=== PATIENT | female | born 1990 | race Caucasian/White ===

== ENCOUNTER → 2021-11-20 10:08 | Outpatient (CLI) | payer OTHER, SELFPAY ==
[2021-11-20 10:42] LABS: Add Manual Diff / Slide Review NO; Basophils Absolute Auto 0 /uL (0-100); Basophils Percent Auto 0.3 % (0-2); Eosinophils Absolute Auto 100 /uL (0-450); Eosinophils Percent Auto 0.6 % (2-4); Hematocrit 39.6 % (36-46); Hemoglobin 13.9 g/dL (12.0-16.0); Lymphocytes Absolute Auto 900 /uL (1100-4500); Lymphocytes Percent Auto 8.4 % (25-40); Mean Corpuscular Hemoglobin 32.1 PG (26-34); Mean Corpuscular Volume 91.7 fL (80-100); Monocytes Absolute Auto 200 /uL (0-900); Monocytes Percent Auto 2.1 % (3-14); Neutrophils Absolute Auto 9300 /uL (1500-7000); Neutrophils Percent Auto 88.6 % (50-75); Platelet Count 309 X10^3/uL (150-400); Red Blood Cell Count 4.32 X10^6/uL (4.0-5.2); Red Cell Distribution Width 13.4 % (11.6-14.8); White Blood Cell Count 10.5 X10^3/uL (4.5-11.0)
[2021-11-20 10:47] LABS: Appearance Urine UA CLEAR; Bilirubin Urine UA NEGATIVE (NEGATIVE); Color Urine UA YELLOW; Glucose Urine UA NEGATIVE (Negative); Ketones Urine UA 1+ (NEGATIVE); Leukocyte Esterase Urine UA TRACE (NEGATIVE); Nitrite Urine UA NEGATIVE (Negative); Occult Blood Urine UA 1+ (Negative); Protein Urine UA TRACE (Negative); Urobilinogen Urine UA 0.2 E.U./dL (0.2)
[2021-11-20 10:57] LABS: pH Urine UA 6.5 (4.5-8.0)
[2021-11-20 11:41] LABS: Bacteria Urine Moderate (10-30); Mucus Urine 2+ (Negative); RBC Urine 1-5/HPF (0-5/HPF); Squamous Epithelial Cell Urine 10-30 /HPF (0-5/HPF); WBC Urine 1-5/HPF (0-5/HPF)
[2021-11-21 06:56] LABS: RPR Screen Non Reactive (Non Reactive)
[2021-11-21 12:18] LABS: Varicella IgG Antibody <135 index (Immune >165)
[2021-11-21 20:01] LABS: Rubella Antibody IgG 13.8 IU/mL (>15)
[2021-11-21 20:03] LABS: HIV 1 & 2 Ab/Ag 4th Gen Combo NEGATIVE (NEGATIVE); Hep C Virus Ab w/Reflex Quant NEGATIVE s/c (NEGATIVE); Hepatitis B Surface Antigen NEGATIVE s/c (NEGATIVE)
[2021-11-22 19:17] LABS: AFP, Serum 35.4 ng/mL (.); Estriol, Free 1.64 ng/mL (.); Inhibin A, Dimeric 180.06 pg/mL (.); Maternal Ethnicity Caucasian (.); Maternal Weight 127 lbs (.); Number of Fetuses No (.); OSBR Risk 1 IN 10000 (.); Test Results *Screen Negative* (.); hCG, Serum 30753 mIU/mL (.)
[2021-11-25 12:04] LABS: Results Report (.)
== END ==
PROVIDERS: Family Provider Internal Medicine; PCP Registered Nurse Diabetes Educator; Referring Provider Obstetrics & Gynecology; Visit Provider Obstetrics & Gynecology
DX: Z34.82 Encounter for supervision of other normal pregnancy, second trimester (principal); Z3A.16 16 weeks gestation of pregnancy
CPT/HCPCS: 36415; 80055; 81003; 81015; 82105; 82677; 84702; 86336; 86787; 86803; 86850; 86900; 86901; 87086; 87389

== ENCOUNTER → 2021-12-12 12:16 | Outpatient (CLI) | payer OTHER, SELFPAY ==
--- NOTE | 2021-12-12 12:17 | DI.US.S_ITS ---
PROCEDURE: US OB >= 14 WEEKS FETUS INDICATIONS: anatomy scan OUTSIDE/PRIOR DATING DATA: Last menstrual period (LMP): 07/25/2021 LMP-based estimated date of delivery (LISSETH): 05/01/2022. First dating scan (date and location): 10/23/2021. Estimated date of delivery (LISSETH) from first dating scan: 05/01/2022. The calculations are made using the ultrasound LISSETH of 05/01/2022. TECHNIQUE: Real-time scanning was performed of the fetus, with image documentation and biometric measurements. COMPARISON: [facility], , OB >= 14 WEEKS FETUS, 11/20/2021, 9:58. FINDINGS: General: A single living intrauterine gestation is present. Presentation: Vertex. Placenta: Placental position is posterior , without previa. Amniotic fluid index: 10.5 cm, normal range is 5-24 cm. Largest pocket 4.6 cm. heart rate: 152 beats per minute. Maternal cervical canal: 3.7 cm long. Normal lower limit is 2.5 cm. biometrics: Biparietal diameter: 20 weeks Head circumference: 20 weeks Abdominal circumference: 20 weeks Femur length: 20 weeks 1 day Clinically estimated gestational age: 20 weeks 0 days Composite gestational age from present scan: 20 weeks 0 days Estimated weight and percentile: 328 g; 47th percentile Anatomic survey: Neuro: Ventricles are non-dilated at less than 10 mm. Cisterna magna is normal at 3-11 mm. Cerebellum is normal in size and morphology. Nuchal skin fold: Normal at less than 6 mm between 14-21 weeks gestational age. Face: Nose and lips, facial profile are normal. Spine: No evidence for spina bifida. Heart: 4-chambered heart is present, with normal ventricular outflow tracts. Diaphragm: Diaphragm is intact. Stomach: Left-sided stomach is present. Kidneys: No hydronephrosis. Normal is less than 5 mm in 2nd trimester, less than 7 mm in 3rd trimester. Cord: 3-vessel cord has orthotopic insertion. Marginal placental cord insertion site 1.6 cm from the placental edge. Bladder: Normal in size. Extremities: All 4 extremities identified. IMPRESSION: 1. Normal interval growth. 2. Normal anatomic survey. 3. Marginal placental cord insertion site 1.6 cm from the placental margin. We strive to produce accurate, complete, and clear reports of imaging services. To assist us in improving patient care, this report was composed using standard report templates and voice recognition software. Therefore, it may contain abnormal punctuation, insertions and/or omissions. Occasional wrong-word or sound-alike substitutions may occur. Though we review the report and make efforts to correct it, we do recommend that the report be read carefully in proper context to recognize any text inaccuracies. Dictated by: Breezy DURÁN Interpreted: Erik Blanchard MD on 12/12/2021 at 14:00 Transcribed by: DEJAH on 12/12/2021 at 14:12 Approved by: Erik Blanchard M.D. on 12/12/2021 at 17:49
== END ==
PROVIDERS: Family Provider Internal Medicine; PCP Registered Nurse Diabetes Educator; Referring Provider Obstetrics & Gynecology; Visit Provider Obstetrics & Gynecology
DX: Z34.82 Encounter for supervision of other normal pregnancy, second trimester (principal); Z3A.20 20 weeks gestation of pregnancy
CPT/HCPCS: 76811

== ENCOUNTER → 2022-01-07 11:08 | Outpatient (CLI) | payer OTHER, SELFPAY ==
[2022-01-07 15:06] LABS: Urine N gonorrhoeae NOT DETECTED
[2022-01-07 15:08] LABS: Urine Chlamydia NOT DETECTED
== END ==
PROVIDERS: Family Provider Internal Medicine; PCP Registered Nurse Diabetes Educator; Visit Provider Obstetrics & Gynecology
DX: Z34.82 Encounter for supervision of other normal pregnancy, second trimester (principal); Z3A.23 23 weeks gestation of pregnancy
CPT/HCPCS: 87491; 87591

== ENCOUNTER → 2022-01-29 10:59 | Outpatient (CLI) | payer OTHER, SELFPAY ==
[2022-01-29 14:00] LABS: Hematocrit 37.2 % (36-46); Hemoglobin 13.1 g/dL (12.0-16.0)
[2022-01-29 14:34] LABS: GTT (PREG) 1 Hour PP 50gm Dose 89 mg/dL (76-139)
== END ==
PROVIDERS: Family Provider Internal Medicine; PCP Registered Nurse Diabetes Educator; Referring Provider Obstetrics & Gynecology; Visit Provider Obstetrics & Gynecology
DX: Z34.82 Encounter for supervision of other normal pregnancy, second trimester (principal); Z3A.26 26 weeks gestation of pregnancy
CPT/HCPCS: 36415; 82950; 85014; 85018

== ENCOUNTER → 2022-04-08 11:28 | Outpatient (CLI) | payer OTHER, SELFPAY ==
[2022-04-09 15:02] LABS: Strep Grp B PCR NEG for Grp B Strep
== END ==
PROVIDERS: Family Provider Internal Medicine; PCP Registered Nurse Diabetes Educator; Visit Provider Obstetrics & Gynecology
DX: Z34.83 Encounter for supervision of other normal pregnancy, third trimester (principal); Z3A.36 36 weeks gestation of pregnancy
CPT/HCPCS: 87653

== ENCOUNTER 2022-05-01 20:11 | Inpatient (IN) | payer OTHER, SELFPAY ==
[2022-05-01 21:11] LABS: Add Manual Diff / Slide Review NO; Basophils Absolute Auto 0 /uL (0-100); Basophils Percent Auto 0.4 % (0-2); Eosinophils Absolute Auto 100 /uL (0-450); Eosinophils Percent Auto 1.5 % (2-4); Hematocrit 36.3 % (36-46); Hemoglobin 12.3 g/dL (12.0-16.0); Lymphocytes Absolute Auto 1900 /uL (1100-4500); Lymphocytes Percent Auto 22.5 % (25-40); Mean Corpuscular Hemoglobin 32.8 PG (26-34); Mean Corpuscular Volume 96.6 fL (80-100); Monocytes Absolute Auto 700 /uL (0-900); Monocytes Percent Auto 7.9 % (3-14); Neutrophils Absolute Auto 5700 /uL (1500-7000); Neutrophils Percent Auto 67.7 % (50-75); Platelet Count 242 X10^3/uL (150-400); Red Blood Cell Count 3.76 X10^6/uL (4.0-5.2); Red Cell Distribution Width 13.8 % (11.6-14.8); White Blood Cell Count 8.4 X10^3/uL (4.5-11.0)
[2022-05-01] MEDS: OXYTOCIN PREMIX 30 UNIT/500 ML PLAST..BAG IV (21:18)
[2022-05-01] MEDS: LACTATED RINGERS 1,000 ML 100 ML IV (21:18)
[2022-05-01 21:24] LABS: COVID19 -Nasal RAPID Negative (Negative)
[2022-05-02] MEDS: LACTATED RINGERS 1,000 ML 100 ML IV ×2 (07:03→08:37)
[2022-05-02] MEDS: FENT 2MCG/ML BUPIV 0.125% EPI 200 MCG/100 ML PLAST..BAG 6 MCG EPIDURAL (08:37)
--- NOTE | 2022-05-02 09:58 | P.HPOB_ITS ---
OB HPI Date/Time Date of admission: 05/01/22 Date Patient Seen: 05/02/22 Time Patient Seen: 09:00 History of Present Condition Chief complaint: Induction LISSETH Calculator Estimated Delivery Date Method Current WG Current Estimate 05/01/22 Ultrasound #1 40w 1d Other Estimates 04/29/22 Conception 40w 3d Estimated Gestational Age (weeks): 40+1 : 3 Para: 2 care: initiated at week # (12), number of visits (10) and pounds weight gain (29) Dating criteria OB: LMP confirmed by 1st trimester US Ultrasounds: normal 1st trimester US and normal mid trimester US Obstetrical complications: none Medical complications OB: none Indications Indication for induction OB: history of rapid labor Preadmission Labs Last OB Lab Results: Blood Type A Positive 05/01/22 20:45 Antibody Screen Negative 05/01/22 20:45 Hematocrit 36.3 % (36-46) 05/01/22 20:45 Hemoglobin 12.3 g/dL (12.0-16.0) 05/01/22 20:45 Hepatitis B Surface Antigen Negative s/c (NEGATIVE) 11/20/21 10 :21 Hepatitis C Antibody Negative s/c (NEGATIVE) 11/20/21 10:21 Rubella Antibody 13.8 IU/mL (>15) L 11/20/21 10:21 Varicella-Zoster IgG Antibody <135 index (Immune >165) L 10:21 Glucose 1 Hour 89 mg/dL (76-139) 01/29/22 11:19 Group B Streptococcus (PCR) Neg for grp b strep 04/08/22 11:28 -: Chlamydia screen: negative, Gonorrhea screen: negative and Urine: negative -: PAP smear: Normal Genetic Screens: Quad screen: Normal External Labs -: Urine: negative Prior (ies) Past Pregnancies Del. Date GA/Weeks Labor Lgth Wt Sex Route Outcome Anesthesia Place Delv Breastfeed Preg Comp Name 08/18/17 41 10 8 lb 14 oz Female vaginal live - full te rm epidural [place], [place] 15 months post-dates induction Tracee 04/14/19 40 7 8 lb 2 oz Male vaginal live - full term ep idural [place], [place] 19 months oligohydramnios Ramos Evaluation Evaluation Baseline heart rate: 135 Variability: Moderate (11-25) monitor accelerations: Present Monitor Decelerations: Absent Contraction Frequency (minutes): 3 Uterine Contraction Intensity: Moderate Dilation (cm): 6 Effacement (%): 85 station: -1 Position of cervix: mid Consistency: soft [facility] Medical History (Updated 03/25/22 @ 11:34 by Saba Cummings MD) Anxiety (07/22/16) Disturbance in sleep behavior (07/22/16) Family history of breast cancer in mother Heavy menstrual period (~2001) Infertility Irregular menstrual cycle (~2001) PCOS (polycystic ovarian syndrome) Plantar warts (~2003) Postoperative abdominal pain Surgical History Anesthesia History of third molar tooth extraction Status post laparoscopy (08/22/16) Family History (Updated 10/16/21 @ 10:08 by Caridad Julien RN) Grandfather Prostate cancer Hypertension Dementia Grandmother Cancer Diabetes mellitus Stroke Brain aneurysm Anemia Skin cancer (melanoma) History of cholecystectomy Grandfather Cancer Esophageal cancer Grandmother Age: 81 Hemochromatosis Hypertrophic cardiomyopathy Mother Breast cancer Social History marital status: number of children: 2 household members: spouse and children lives independently: Yes housing: house pets and animals: Yes (1 dog) education level: college ([employer] degree) occupational status: unemployed current occupational exposures/hazards: No special raeann needs: No travel history: over 6 months ago seatbelt use: always helmet use: Yes water heater temp set < 120 deg: No (Will check and adjust) working smoke detector in home: Yes fire extinguisher in home: Yes carbon monox detector in home: Yes firearms in home: Yes firearms unloaded and locked: Yes do you feel safe at home: Yes Smoking Status: Never smoker second hand exposure: No alcohol intake: never substance use type: does not use during the past year weight has: remained stable well-balanced diet: daily or most days daily servings fruits/ve-4 caffeine: Yes Type(s) of exercise: walking and bicycling Meds Home Medications and Allergies Home Medications Medication Instructions Recorded Confirmed Type prenat.vits,edita,ehw-gdji-jrxbc 1 tab PO DAILY 10/23/21 05/01/22 History Allergies Allergy/AdvReac Type Severity Reaction Status Date / Time No Known Drug Allergies Allergy Verified 04/22/22 11:09 OB Exam Narrative Exam Narrative: Generally: Patient is sitting up in bed, no acute distress Lungs: Clear to auscultation bilaterally Cardiovascular: Regular rate and rhythm Fundal height: 40 cm Estimated weight: 8 lbs Extremities: No edema Objective Labs Result Diagrams: 05/01/22 20:45 Labs: Laboratory Results - last 24 hr 05/01/22 05/01/22 05/01/22 20:45 20:45 21:02 WBC 8.4 RBC 3.76 L Hgb 12.3 Hct 36.3 MCV 96.6 MCH 32.8 MCHC 34.0 RDW 13.8 Plt Count 242 Neut % (Auto) 67.7 Lymph % (Auto) 22.5 L Heard % (Auto) 7.9 Eos % (Auto) 1.5 L Baso % (Auto) 0.4 Neut # (Auto) 5700 Lymph # (Auto) 1900 Heard # (Auto) 700 Eos # (Auto) 100 Baso # (Auto) 0 SARS-CoV-2 (PCR) Negative Blood Type A Positive Antibody Screen Negative Assessment and Plan Assessment and Plan Assessment and Plan narrative: Assessment: 31-year-old 3 para 2 at 40-,1/7 weeks gestation for induction of labor Plan: Artificial rupture membranes with clear amniotic fluid Epidural as necessary Expected management to spontaneous vaginal delivery Time Spent with Patient Total time spent with greater than 50% in coordination of care (as documented) at patient's floor/unit and/or counseling patient:: 15-24 minutes
--- NOTE | 2022-05-02 11:34 | P.PCNOB_ITS ---
Labor & Delivery Delivery date: 05/02/22 Cervical ripening method: none Induction method: per pitocin protocol Delivery augmentation: rupture of membranes Delivery monitor: external FHT and external uterine Route of delivery: Episiotomy description: None L&D Laceration Description: Perineal - 1st Degree Delivery repair: chromic Quantitative Blood Loss: 200 Anesthesia Type: Epidural Complications: None Narrative: Patient complete and pushed with 2 contractions. At 1107, a live female delivered spontaneously over an intact perineum in the WINDY presentation. No nuchal cord. The remainder of the body delivered without difficulty and was placed on mom's abdomen. After the cord stopped pulsing, the cord was double- clamped and cut. Cord bloods were obtained. Pitocin was given in the IVF's. The placenta delivered intact with a 3 vessel cord at 1115. A first degree perineal laceration was repaired in the usual fashion using 2-0 Chromic. Hemostasis was achieved. Apgars 9 at 1 minute and 9 at 5 minutes. Epidural analgesia. Hemostasis achieved. . Weight: 7# 12.3 oz Baby 1: gender: Female Presentation: vertex Position: Right Occiput Anterior Placenta delivery description: Spontaneous Cord Vessel Description: 3 Vessels and Clamped/Cut (After the cord stopped pulsing) score (1 min): 9 score (5 min): 9 weight: 7 lb 12.3 oz Plan for aftercare: Routine care
[2022-05-02] MEDS: IBUPROFEN 600 MG TABLET PO ×2 (12:28→18:17)
[2022-05-02] MEDS: ACETAMINOPHEN 325 MG TABLET 650 MG PO ×2 (12:28→18:17)
[2022-05-02] MEDS: DERMOPLAST SPRAY 20% 60 ML 1 SPRAY TOP (12:30)
[2022-05-03] MEDS: ACETAMINOPHEN 325 MG TABLET 650 MG PO ×2 (01:03→09:10)
[2022-05-03] MEDS: IBUPROFEN 600 MG TABLET PO ×2 (01:04→09:11)
[2022-05-03 07:25] LABS: Hematocrit 34.5 % (36-46); Hemoglobin 11.9 g/dL (12.0-16.0)
[2022-05-03] MEDS: PRENATAL VIT,CALC/IRON/FOLIC 1 TABLET 1 TAB PO (09:11)
[2022-05-03] MEDS: DOCUSATE 100 MG CAPSULE PO (09:11)
[2022-05-03 09:32] VITALS: BP 113/78; PULSE 71; RESP 16; TEMP 36.7
[2022-05-03] MEDS: MEASLES,MUMPS,RUBELLA VACC/PF 0.5 ML VIAL SUBCUT (10:29)
== END 2022-05-03 10:45 | disposition home or self-care (01) | DRG 807 ==
PROVIDERS: Admitting Provider Obstetrics & Gynecology; Family Provider Internal Medicine; PCP Registered Nurse Diabetes Educator; Referring Provider Obstetrics & Gynecology; Visit Provider Obstetrics & Gynecology
DX: O70.0 First degree perineal laceration during delivery (principal); Z37.0 Single live birth; Z20.822 Contact with and (suspected) exposure to COVID-19; Z3A.40 40 weeks gestation of pregnancy
CPT/HCPCS: 36415; 59050; 59400; 85014; 85018; 85025; 86850; 86900; 86901; 87635; C9803; G0379; J2590

== ENCOUNTER 2022-07-14 16:33 | Emergency (ER) | payer OTHER, SELFPAY ==
[2022-07-14] VITALS (7 sets, daily range): BP systolic 110–144; BP diastolic 65–71; PULSE 59–83; RESP 18; TEMP 36.4; O2SAT 98–100; BMI 22.6
[2022-07-14] MEDS: ONDANSETRON 4 MG/2 ML INJ IV (16:57)
[2022-07-14 17:03] LABS: Add Manual Diff / Slide Review NO; Basophils Absolute Auto 0 /uL (0-100); Basophils Percent Auto 0.3 % (0-2); Eosinophils Absolute Auto 100 /uL (0-450); Eosinophils Percent Auto 0.7 % (2-4); Hematocrit 42.1 % (36-46); Hemoglobin 14.2 g/dL (12.0-16.0); Lymphocytes Absolute Auto 1500 /uL (1100-4500); Mean Corpuscular HGB Conc 33.7 % (30-36); Mean Corpuscular Hemoglobin 31.5 PG (26-34); Mean Corpuscular Volume 93.3 fL (80-100); Monocytes Absolute Auto 600 /uL (0-900); Neutrophils Absolute Auto 9500 /uL (1500-7000); Platelet Count 365 X10^3/uL (150-400); Red Blood Cell Count 4.52 X10^6/uL (4.0-5.2); Red Cell Distribution Width 12.6 % (11.6-14.8); White Blood Cell Count 11.7 X10^3/uL (4.5-11.0)
--- NOTE | 2022-07-14 17:05 | DI.US.S_ITS ---
PROCEDURE: US PELVIC COMPLETE INDICATIONS: 10 WEEKS POST , NEW ABDOMEN PAIN NEW VAGINAL BLEEDING TECHNIQUE: Real-time scanning was performed of the pelvic organs, with image documentation. Additional endovaginal scanning was necessary due to incomplete visualization of the adnexal and endometrial structures by transabdominal scanning. COMPARISON: [facility], CT, CT KIDNEY URETER BLADDER (KUB), 07/14/2022, 19:15. FINDINGS: Uterus: Uterus is retroverted and normal in size at 7.1 x 4.3 x 7.3 cm. The myometrium is homogeneous. The endometrium measures 2 mm combined thickness. Ovaries: The right ovary measures 3.7 x 1.9 x 3.2 cm, with a calculated ovarian volume of 12 cc. The left ovary measures 3.8 x 2.6 x 3.2 cm, with a calculated ovarian volume of 17 cc. No adnexal masses are seen. Arterial and venous blood flow visualized within both ovaries on Doppler images. Other: No pathologic free abdominal or pelvic fluid. IMPRESSION: Unremarkable pelvic ultrasound. We strive to produce accurate, complete, and clear reports of imaging services. To assist us in improving patient care, this report was composed using standard report templates and voice recognition software. Therefore, it may contain abnormal punctuation, insertions and/or omissions. Occasional wrong-word or sound-alike substitutions may occur. Though we review the report and make efforts to correct it, we do recommend that the report be read carefully in proper context to recognize any text inaccuracies. Dictated by: Sergio Villa M.D. on 07/14/2022 at 19:26 Approved by: Sergio Villa M.D. on 07/14/2022 at 19:28
[2022-07-14 17:16] LABS: Alanine Aminotransferase 36 IU/L (<35); Albumin 4.9 g/dL (3.5-5.0); Albumin Globulin Ratio 1.6 (1.0-2.8); Alkaline Phosphatase 68 U/L (38-126); Aspartate Aminotransferase 31 IU/L (14-36); BUN Creatinine Ratio 23.3 (6-22); Bilirubin Total 0.6 mg/dL (0.2-1.3); Blood Urea Nitrogen 14 mg/dL (7-17); Calcium 9.3 mg/dL (8.4-10.2); Carbon Dioxide 19 mmol/L (22-32); Chloride 100 mmol/L (98-107); Estimated Glomerular Filt Rate > 60 mL/min (>60); Globulin 3.1 g/dL (1.7-4.1); Glucose 134 mg/dL (70-100); HEMOLYSIS < 15 (0-50); Lipase 113 U/L (23-300); Potassium 3.3 mmol/L (3.4-5.1); Sodium 136 mmol/L (137-145)
[2022-07-14] MEDS: KETOROLAC 30 MG/ML VIAL 15 MG IM (17:30)
[2022-07-14 17:37] LABS: Amorphous Sediment Urine 1+; Bacteria Urine Occasional (0-1); Culture Indicated Urine Specimen Cultured; RBC Urine 1-5/HPF (0-5/HPF); Squamous Epithelial Cell Urine 1-5 /HPF (0-5/HPF); WBC Urine 5-10/HPF (0-5/HPF)
--- NOTE | 2022-07-14 17:45 | ED.ABDPAIN ---
HPI - Abdominal Pain <MARION Art - Last Filed: 07/14/22 20:54> General Chief Complaint: Abdominal Pain Stated Complaint: severe cramping on the lt side with bleeding, 10 w Time Seen by Provider: 07/14/22 17:20 Source: patient Mode of arrival: Ambulatory History of Present Illness HPI narrative: This is a 32-year-old female who is 10 weeks vaginal delivery uncomplicated who is presenting with right lower quadrant/pelvic cramping that started just prior to arrival in his severe in nature. Cramping and bleeding start at 14:00 today, complains of spotting on Thursday after coitus and has had increasing vaginal bleeding since. She states that at 14:00 today she had a sudden onset of right pelvic pain that was severe, states that she doubled over and then had increasing vaginal bleeding. States that she is not had a menses . She denies any vaginal odor, denies any recent fever, chills, other abdominal pain, changes to her diet or stool. She states that she was having a bowel movement it 1400 and the pain worsened in her right lower quadrant. Related Data Home Medications Medication Instructions Recorded Confirmed prenat.vits,edita,[id number] 1 tab PO DAILY 10/23/21 06/18/22 Previous Rx's Medication Instructions Recorded cephalexin 500 mg capsule 500 mg PO QID 5 days #20 caps 07/14/22 ibuprofen 600 mg tablet 600 mg PO Q8H PRN fever or pain 07/14/22 #30 tabs phenazopyridine 200 mg tablet 200 mg PO QPC 6 doses #7 tabs 07/14/22 (Pyridium) polyethylene glycol 3350 17 17 g PO DAILY soft stool #238 grams 07/14/22 gram/dose oral powder (Miralax) Allergies Allergy/AdvReac Type Severity Reaction Status Date / Time No Known Drug Allergies Allergy Verified 06/18/22 11:27 Review of Systems <MARION Art - Last Filed: 07/14/22 20:54> Review of Systems ROS Unobtainable: All systems reviewed & are unremarkable except as noted in HPI and below Patient History <MARION Art - Last Filed: 07/14/22 20:54> Medical History Anxiety (07/22/16) Disturbance in sleep behavior (07/22/16) Family history of breast cancer in mother Heavy menstrual period (~2001) Infertility Irregular menstrual cycle (~2001) PCOS (polycystic ovarian syndrome) Plantar warts (~2003) Postoperative abdominal pain Surgical History Anesthesia History of third molar tooth extraction Status post laparoscopy (08/22/16) Family History Grandfather Prostate cancer Hypertension Dementia Grandmother Cancer Diabetes mellitus Stroke Brain aneurysm Anemia Skin cancer (melanoma) History of cholecystectomy Grandfather Cancer Esophageal cancer Grandmother Age: 81 Hemochromatosis Hypertrophic cardiomyopathy Mother Breast cancer Social History marital status: number of children: 2 household members: spouse and children lives independently: Yes housing: house pets and animals: Yes (1 dog) education level: college ([employer] degree) occupational status: unemployed current occupational exposures/hazards: No special raeann needs: No travel history: over 6 months ago seatbelt use: always helmet use: Yes water heater temp set < 120 deg: No (Will check and adjust) working smoke detector in home: Yes fire extinguisher in home: Yes carbon monox detector in home: Yes firearms in home: Yes firearms unloaded and locked: Yes do you feel safe at home: Yes Smoking Status: Never smoker second hand exposure: No alcohol intake: never substance use type: does not use during the past year weight has: remained stable well-balanced diet: daily or most days daily servings fruits/ve-4 caffeine: Yes Type(s) of exercise: walking and bicycling Smoking Status: Never smoker Substance Use Type: does not use Exam <MARION Art - Last Filed: 07/14/22 20:54> Narrative Exam Narrative: Reviewed vitals signs and nursing notes. General: cooperative, comfortable, patient is bent over leaning forward on the bed trembling having pain, afebrile Well groomed HEENT: symmetrical facial expressions, moist mucous membranes Cardiovascular: regular rate and rhythm, no peripheral edema, warm extremities Respiratory: normal effort, able to speak in complete sentences, without wheezing, stridor, or abnormal breath sounds. No retractions or tachypnea. GI: abdomen soft, nontender to palpation, nondistended, without masses, rebound tenderness or exquisite tenderness with exam. MSK: moves all extremities, neurovascularly intact, no weakness, normal tone Skin: brisk capillary refill, without pallor or erythema Neuro: normal speech and cognition, A&O x3, ambulatory, clear speech Psych: mental status is grossly normal, congruent mood, normal affect, pleasant and cooperative Initial Vital Signs Initial Vital Signs: Vital Signs Temperature 97.6 F 07/14/22 16:35 Pulse Rate 76 07/14/22 16:35 Respiratory Rate 18 07/14/22 16:35 Blood Pressure 137/65 07/14/22 16:35 Pulse Oximetry 100 07/14/22 16:35 Oxygen Delivery Method 07/14/22 16:35 <Quinton Reyes DO - Last Filed: 07/15/22 03:25> Initial Vital Signs Initial Vital Signs: Vital Signs Temperature 97.6 F 07/14/22 16:35 Pulse Rate 76 07/14/22 16:35 Respiratory Rate 18 07/14/22 16:35 Blood Pressure 137/65 07/14/22 16:35 Pulse Oximetry 100 07/14/22 16:35 Oxygen Delivery Method 07/14/22 16:35 Course <MARION Art - Last Filed: 07/14/22 20:54> Orders Ordered: ED Orders 07/14/22 19:13 CT kidney ureter bladder (KUB) Stat Discontinued Medications Hydrocodone Bitart/Acetaminophen (Hydrocodone/Acet 5/325 Tablet) 1 tab PO NOW ONE Stop: 07/14/22 19:13 Last Admin: 07/14/22 19:26 Dose: 1 tab Documented By: MARY Cephalexin HCl (Cephalexin 250 Mg Capsule) 500 mg PO NOW ONE Stop: 07/14/22 19:49 Last Admin: 07/14/22 20:38 Dose: Not Given Documented By: MARY Cephalexin HCl (Cephalexin 250 Mg Capsule) 500 mg PO NOW ONE Stop: 07/14/22 20:31 Last Admin: 07/14/22 20:36 Dose: 500 mg Documented By: MARY Hydromorphone HCl (Hydromorphone 0.5 Mg Inj) 0.5 mg IV NOW ONE Stop: 07/14/22 17:45 Last Admin: 07/14/22 18:02 Dose: Not Given Documented By: MARY Hydromorphone HCl (Hydromorphone 0.5 Mg Inj) 0.5 mg IV NOW ONE Stop: 07/14/22 18:44 Last Admin: 07/14/22 19:02 Dose: Not Given Documented By: MARY Ketorolac Tromethamine (Ketorolac 30 Mg/Ml Vial) 15 mg IM NOW ONE Stop: 07/14/22 17:25 Last Admin: 07/14/22 17:30 Dose: 15 mg Documented By: MARY Ondansetron HCl (Ondansetron 4 Mg Odt) 4 mg PO NOW PRN PRN Reason: Nausea And Vomiting Ondansetron HCl (Ondansetron 4 Mg/2 Ml Inj) 4 mg IV NOW PRN PRN Reason: Nausea And Vomiting Last Admin: 07/14/22 16:57 Dose: 4 mg Documented By: MARY Phenazopyridine HCl (Phenazopyridine 100 Mg Tablet) 200 mg PO NOW ONE Stop: 07/14/22 20:31 Last Admin: 07/14/22 20:36 Dose: 200 mg Documented By: MARY Potassium Chloride (Potassium Chloride 20 Meq/15 Ml Udc) 40 meq PO NOW ONE Stop: 07/14/22 19:48 Last Admin: 07/14/22 20:37 Dose: 40 meq Documented By: MARY Vital Signs Vital signs: Vital Signs - 8 hr 07/14/22 20:03 07/14/22 20:04 07/14/22 20:04 Pulse Rate 79 75 Blood Pressure 120/71 Pulse Oximetry 99 100 Oxygen Delivery Method 07/14/22 21:13 Pulse Rate 76 Blood Pressure 114/66 Pulse Oximetry 98 Oxygen Delivery Method Room Air <Quinton Reyes DO - Last Filed: 07/15/22 03:25> Orders Ordered: ED Orders 07/14/22 19:13 CT kidney ureter bladder (KUB) Stat Discontinued Medications Hydrocodone Bitart/Acetaminophen (Hydrocodone/Acet 5/325 Tablet) 1 tab PO NOW ONE Stop: 07/14/22 19:13 Last Admin: 07/14/22 19:26 Dose: 1 tab Documented By: MARY Cephalexin HCl (Cephalexin 250 Mg Capsule) 500 mg PO NOW ONE Stop: 07/14/22 19:49 Last Admin: 07/14/22 20:38 Dose: Not Given Documented By: MARY Cephalexin HCl (Cephalexin 250 Mg Capsule) 500 mg PO NOW ONE Stop: 07/14/22 20:31 Last Admin: 07/14/22 20:36 Dose: 500 mg Documented By: MARY Hydromorphone HCl (Hydromorphone 0.5 Mg Inj) 0.5 mg IV NOW ONE Stop: 07/14/22 17:45 Last Admin: 07/14/22 18:02 Dose: Not Given Documented By: MARY Hydromorphone HCl (Hydromorphone 0.5 Mg Inj) 0.5 mg IV NOW ONE Stop: 07/14/22 18:44 Last Admin: 07/14/22 19:02 Dose: Not Given Documented By: MARY Ketorolac Tromethamine (Ketorolac 30 Mg/Ml Vial) 15 mg IM NOW ONE Stop: 07/14/22 17:25 Last Admin: 07/14/22 17:30 Dose: 15 mg Documented By: MARY Ondansetron HCl (Ondansetron 4 Mg Odt) 4 mg PO NOW PRN PRN Reason: Nausea And Vomiting Ondansetron HCl (Ondansetron 4 Mg/2 Ml Inj) 4 mg IV NOW PRN PRN Reason: Nausea And Vomiting Last Admin: 07/14/22 16:57 Dose: 4 mg Documented By: MARY Phenazopyridine HCl (Phenazopyridine 100 Mg Tablet) 200 mg PO NOW ONE Stop: 07/14/22 20:31 Last Admin: 07/14/22 20:36 Dose: 200 mg Documented By: MARY Potassium Chloride (Potassium Chloride 20 Meq/15 Ml Udc) 40 meq PO NOW ONE Stop: 07/14/22 19:48 Last Admin: 07/14/22 20:37 Dose: 40 meq Documented By: MARY Vital Signs Vital signs: Vital Signs - 8 hr 07/14/22 20:03 07/14/22 20:04 07/14/22 20:04 Pulse Rate 79 75 Blood Pressure 120/71 Pulse Oximetry 99 100 Oxygen Delivery Method 07/14/22 21:13 Pulse Rate 76 Blood Pressure 114/66 Pulse Oximetry 98 Oxygen Delivery Method Room Air MDM - Abdominal Pain <MARION Art - Last Filed: 07/14/22 20:54> Lab Data 07/14/22 16:52 07/14/22 16:52 Labs: Lab Results 07/14/22 07/14/22 07/14/22 Range/Units 16:52 16:52 16:52 WBC 11.7 H (4.5-11.0) X10^3/uL RBC 4.52 (4.0-5.2) X10^6/uL Hgb 14.2 (12.0-16.0) g/dL Hct 42.1 (36-46) % MCV 93.3 (80-100) fL MCH 31.5 (26-34) PG MCHC 33.7 (30-36) % RDW 12.6 (11.6-14.8) % Plt Count 365 (150-400) X10^3/uL Neut % (Auto) 81.0 H (50-75) % Lymph % (Auto) 13.0 L (25-40) % [place] % (Auto) 5.0 (3-14) % Eos % (Auto) 0.7 L (2-4) % Baso % (Auto) 0.3 (0-2) % Neut # (Auto) 9500 H (6152-6270) /uL Lymph # (Auto) 1500 (1920-7248) /uL [place] # (Auto) 600 (0-900) /uL Eos # (Auto) 100 (0-450) /uL Baso # (Auto) 0 (0-100) /uL Sodium 136 L (137-145) mmol/L Potassium 3.3 L (3.4-5.1) mmol/L Chloride 100 (98-107) mmol/L Carbon Dioxide 19 L (22-32) mmol/L BUN 14 (7-17) mg/dL Creatinine 0.60 (0.52-1.04) mg/dL Estimated GFR > 60 (>60) mL/min BUN/Creatinine Ratio 23.3 H (6-22) Glucose 134 H (70-100) mg/dL Calcium 9.3 (8.4-10.2) mg/dL Total Bilirubin 0.6 (0.2-1.3) mg/dL AST 31 (14-36) IU/L ALT 36 H (<35) IU/L Alkaline Phosphatase 68 (38-126) U/L C-Reactive Protein < 0.5 (<1.0) mg/dL Total Protein 8.0 (6.3-8.2) g/dL Albumin 4.9 (3.5-5.0) g/dL Globulin 3.1 (1.7-4.1) g/dL Albumin/Globulin Ratio 1.6 (1.0-2.8) Lipase 113 (23-300) U/L Procalcitonin < 0.03 (<0.5) ng/mL HCG, Quant < 2.4 mIU/mL Urine RBC (0-5/HPF) Urine WBC (0-5/HPF) Ur Squamous Epith Cells (0-5/HPF) Amorphous Sediment Urine Bacteria (None) Ur Culture Indicated? 07/14/22 Range/Units 17:10 WBC (4.5-11.0) X10^3/uL RBC (4.0-5.2) X10^6/uL Hgb (12.0-16.0) g/dL Hct (36-46) % MCV (80-100) fL MCH (26-34) PG MCHC (30-36) % RDW (11.6-14.8) % Plt Count (150-400) X10^3/uL Neut % (Auto) (50-75) % Lymph % (Auto) (25-40) % [place] % (Auto) (3-14) % Eos % (Auto) (2-4) % Baso % (Auto) (0-2) % Neut # (Auto) (5884-1374) /uL Lymph # (Auto) (4411-6371) /uL [place] # (Auto) (0-900) /uL Eos # (Auto) (0-450) /uL Baso # (Auto) (0-100) /uL Sodium (137-145) mmol/L Potassium (3.4-5.1) mmol/L Chloride (98-107) mmol/L Carbon Dioxide (22-32) mmol/L BUN (7-17) mg/dL Creatinine (0.52-1.04) mg/dL Estimated GFR (>60) mL/min BUN/Creatinine Ratio (6-22) Glucose (70-100) mg/dL Calcium (8.4-10.2) mg/dL Total Bilirubin (0.2-1.3) mg/dL AST (14-36) IU/L ALT (<35) IU/L Alkaline Phosphatase (38-126) U/L C-Reactive Protein (<1.0) mg/dL Total Protein (6.3-8.2) g/dL Albumin (3.5-5.0) g/dL Globulin (1.7-4.1) g/dL Albumin/Globulin Ratio (1.0-2.8) Lipase (23-300) U/L Procalcitonin (<0.5) ng/mL HCG, Quant mIU/mL Urine RBC 1-5/hpf (0-5/HPF) Urine WBC 5-10/hpf H (0-5/HPF) Ur Squamous Epith Cells 1-5 /hpf D (0-5/HPF) Amorphous Sediment 1+ Urine Bacteria Occasional (0-1) (None) Ur Culture Indicated? Specimen cultured Point of care testing: Point of Care Testing Test Results Negative Urine Dip Bedside Urine Glucose Negative Bedside Urine Bilirubin - Negative Bedside Urine Ketone + 15 Urine Specific [place] 1.030 Bedside Urine Occult Blood ++ Bedside Urine pH 6.0 Bedside Urine Protein + 30 Bedside Urine Urobilinogen - Negative Bedside Urine Nitrite - Negative Bedside Urine Leukocytes - Negative Esterase Imaging Data US - [employer]: Radiologist's Impression: Name: Yojana Wyatt Age/Sex: 32/F Attend Dr: Sandra Olson Unit#: [id number] : 1990Location: ED Re07/14/22 Disch: Status: REG ER SPEC #: [id number] FER: 07/14/22 STATUS: COMP REQ #: [id number] SPDESC: RECD: 07/14/[address]: Sandra Olson SOURCE: Vaginal ENTR: 07/14/[address]: Carl Proctor FAX TO: ORDERED: Wet Prep Procedure Result Verified Site Wet Prep Tric BV Vannesa Final 07/14/22 White blood cells No WBC seen Clue cells: None seen Yeast: None seen Trichomonas: None seen MDM Narrative Medical decision making narrative: Chief Complaint: Pelvic pressure, pain This is a 32-year-old female who is 10 weeks vaginal delivery uncomplicated who is presenting with right lower quadrant/pelvic cramping that started just prior to arrival in his severe in nature. Cramping and bleeding start at 14:00 today, complains of spotting on Thursday after coitus and has had increasing vaginal bleeding since. She states that at 14:00 today she had a sudden onset of right pelvic pain that was severe, states that she doubled over and then had increasing vaginal bleeding. States that she is not had a menses . Differential diagnoses include but are not limited to: PCOS, ruptured ovarian cyst, viral process, appendicitis, pancreatitis, diverticulitis, gastric/duodenal ulcer, colitis, acute cystitis, acute hepatitis, nephrolithiasis, pyelonephritis, mesenteric ischemia, AAA, ACS/KS, ectopic , fibroids, ovarian mass/cyst, STI/PID, menstrual cycle, I have reviewed the patient's vital signs and nursing notes as well as prior records if available. Pertinent lab findings reviewed: Wet prep is negative for WBCs, clue cells yeast and Trichomonas, mild leukocytosis of 11.7 with a left shift, hypokalemia of 3.3 CO2 of 19, BUN 23.3, no elevation to her CRP, lipase, liver enzymes, procalcitonin, via serum is negative. UA shows 5-10 WBCs on microscopy, urine culture pending Pertinent Imaging reviewed: Transvaginal ultrasound ?Normal pelvic ultrasound. No pathologic free abdominal or pelvic fluid. ?Uterus is retroverted and normal in size at 7.1 x 4.3 x 7.3 cm. The myometrium is homogeneous. ? The endometrium measures 2 mm combined thickness.? Patient's CT abdomen pelvis shows moderate stool burden Course of care: Basic labs including CBC, CMP, CRP and wet mount completed in room, transvaginal pelvic ultrasound completed, imaging above, patient's pain was treated with Toradol, hydromorphone, she is p.o. tolerant but currently NPO. 1930 patient's pain is returning, her CT was completed at 19:13, pending radiology report Discussion: CT abdomen pelvis without contrast came back negative for abnormality as well as her ultrasound pelvis. No elevation of procalcitonin, she is not , good blood flow to her ovaries on ultrasound, and no concerning findings on her lab work. This is most likely ruptured ovarian cyst, moderate stool burden on ovarian tissue and worsening pain. I recommended MiraLax and prescribed this for her, she does have UA concerning for acute cystitis without systemic symptoms. Will treat with cephalexin q.i.d. x7 days, she will follow up with her primary care provider as needed Patient's symptoms improved over duration of stay with above-stated therapies. Social considerations that may affect disposition: none Questions are addressed and there is agreement with the plan and for follow-up. Patient is appropriate for outpatient management. MIPS: This encounter doesn't have any diagnosis' associated with MIPS criteria. <Quinton Reyes DO - Last Filed: 07/15/22 03:25> Lab Data Labs: Lab Results 07/14/22 07/14/22 07/14/22 Range/Units 16:52 16:52 16:52 WBC 11.7 H (4.5-11.0) X10^3/uL RBC 4.52 (4.0-5.2) X10^6/uL Hgb 14.2 (12.0-16.0) g/dL Hct 42.1 (36-46) % MCV 93.3 (80-100) fL MCH 31.5 (26-34) PG MCHC 33.7 (30-36) % RDW 12.6 (11.6-14.8) % Plt Count 365 (150-400) X10^3/uL Neut % (Auto) 81.0 H (50-75) % Lymph % (Auto) 13.0 L (25-40) % [place] % (Auto) 5.0 (3-14) % Eos % (Auto) 0.7 L (2-4) % Baso % (Auto) 0.3 (0-2) % Neut # (Auto) 9500 H (9312-7844) /uL Lymph # (Auto) 1500 (2492-9379) /uL [place] # (Auto) 600 (0-900) /uL Eos # (Auto) 100 (0-450) /uL Baso # (Auto) 0 (0-100) /uL Sodium 136 L (137-145) mmol/L Potassium 3.3 L (3.4-5.1) mmol/L Chloride 100 (98-107) mmol/L Carbon Dioxide 19 L (22-32) mmol/L BUN 14 (7-17) mg/dL Creatinine 0.60 (0.52-1.04) mg/dL Estimated GFR > 60 (>60) mL/min BUN/Creatinine Ratio 23.3 H (6-22) Glucose 134 H (70-100) mg/dL Calcium 9.3 (8.4-10.2) mg/dL Total Bilirubin 0.6 (0.2-1.3) mg/dL AST 31 (14-36) IU/L ALT 36 H (<35) IU/L Alkaline Phosphatase 68 (38-126) U/L C-Reactive Protein < 0.5 (<1.0) mg/dL Total Protein 8.0 (6.3-8.2) g/dL Albumin 4.9 (3.5-5.0) g/dL Globulin 3.1 (1.7-4.1) g/dL Albumin/Globulin Ratio 1.6 (1.0-2.8) Lipase 113 (23-300) U/L Procalcitonin < 0.03 (<0.5) ng/mL HCG, Quant < 2.4 mIU/mL Urine RBC (0-5/HPF) Urine WBC (0-5/HPF) Ur Squamous Epith Cells (0-5/HPF) Amorphous Sediment Urine Bacteria (None) Ur Culture Indicated? 07/14/22 Range/Units 17:10 WBC (4.5-11.0) X10^3/uL RBC (4.0-5.2) X10^6/uL Hgb (12.0-16.0) g/dL Hct (36-46) % MCV (80-100) fL MCH (26-34) PG MCHC (30-36) % RDW (11.6-14.8) % Plt Count (150-400) X10^3/uL Neut % (Auto) (50-75) % Lymph % (Auto) (25-40) % [place] % (Auto) (3-14) % Eos % (Auto) (2-4) % Baso % (Auto) (0-2) % Neut # (Auto) (6931-2918) /uL Lymph # (Auto) (6205-6027) /uL [place] # (Auto) (0-900) /uL Eos # (Auto) (0-450) /uL Baso # (Auto) (0-100) /uL Sodium (137-145) mmol/L Potassium (3.4-5.1) mmol/L Chloride (98-107) mmol/L Carbon Dioxide (22-32) mmol/L BUN (7-17) mg/dL Creatinine (0.52-1.04) mg/dL Estimated GFR (>60) mL/min BUN/Creatinine Ratio (6-22) Glucose (70-100) mg/dL Calcium (8.4-10.2) mg/dL Total Bilirubin (0.2-1.3) mg/dL AST (14-36) IU/L ALT (<35) IU/L Alkaline Phosphatase (38-126) U/L C-Reactive Protein (<1.0) mg/dL Total Protein (6.3-8.2) g/dL Albumin (3.5-5.0) g/dL Globulin (1.7-4.1) g/dL Albumin/Globulin Ratio (1.0-2.8) Lipase (23-300) U/L Procalcitonin (<0.5) ng/mL HCG, Quant mIU/mL Urine RBC 1-5/hpf (0-5/HPF) Urine WBC 5-10/hpf H (0-5/HPF) Ur Squamous Epith Cells 1-5 /hpf D (0-5/HPF) Amorphous Sediment 1+ Urine Bacteria Occasional (0-1) (None) Ur Culture Indicated? Specimen cultured Point of care testing: Point of Care Testing Test Results Negative Urine Dip Bedside Urine Glucose Negative Bedside Urine Bilirubin - Negative Bedside Urine Ketone + 15 Urine Specific [place] 1.030 Bedside Urine Occult Blood ++ Bedside Urine pH 6.0 Bedside Urine Protein + 30 Bedside Urine Urobilinogen - Negative Bedside Urine Nitrite - Negative Bedside Urine Leukocytes - Negative Esterase Discharge Plan Departure Patient Disposition: Home Clinical Impression: Acute cystitis with hematuria, Ovarian cyst rupture Constipation Qualifiers: Constipation type: unspecified constipation type Qualified Code(s): K59.00 - Constipation, unspecified Instructions: Polycystic Ovary Syndrome, Ovarian Cyst, Acute Cystitis, Constipation Activity Restrictions/Additional Instructions: *You have been diagnosed with pain most consistent with both bladder infection and ovarian cyst rupture. It is likely that you are on your 1st menses following the delivery of your baby and that you ruptured an ovarian cyst today. Your CT scan shows moderate stool in your colon, this can be very uncomfortable going over your ovaries especially if you are bearing down. Please use MiraLax 1-2 times daily to titrate for soft stools. Please follow-up with your primary care provider if you have ongoing symptoms and for a test of cure. Pelvic ultrasound does not show any abnormalities at all. Good blood flow to both of your ovaries. Your urine shows signs of infection, this is most likely what is going on with your pain. Please take this antibiotic 4 times a day for the next 5 days and should take care of it. Use ibuprofen 600 mg every 6 hours, okay to take Pyridium if you are not going to breastfeed, this is for your bladder symptoms. It is not tested on mother's so I have no data to support if this is helpful. Please prioritize MiraLax, ibuprofen and Tylenol as needed, you should start feeling better soon. Please follow-up with your primary for recheck. CT and ultrasound did not show any dangerous causes of your pain. *What to do: *Please continue to take your regular medications as directed. [x ] New medication prescriptions sent to your pharmacy: [[facility] ] [ ] New medication written as a paper prescription [ ] No new medications given *Please follow up with your primary care provider in 2-3 days, call for an appointment. Let them know you were seen in the Emergency Department and that we asked that you be seen for follow-up. We will electronically transmit a record of today's note if your PCP is in our system *If you do not have a primary care provider please contact [phone] to establish care with one of the [facility] primary care providers. *Return to Emergency Department if you should have any new, worsening, or concerning symptoms, such as [fever greater than 101F, chills, worsening pain, persistent vomiting or other bothersome symptoms]. Prescriptions: New polyethylene glycol 3350 [Miralax] 17 gram/dose powder 17 g PO DAILY Qty: 238 0RF ibuprofen 600 mg tablet 600 mg PO Q8H PRN (Reason: fever or pain) Qty: 30 0RF cephalexin 500 mg capsule 500 mg PO QID 5 Days Qty: 20 0RF phenazopyridine [Pyridium] 200 mg tablet 200 mg PO QPC Qty: 7 0RF No Action prenat.vits,edita,[id number] Tablet 1 tab PO DAILY Referrals: Carl Proctor ARNP [Primary Care Provider] - Stand Alone Forms: Patient Portal/API <Quinton Reyes DO - Last Filed: 07/15/22 03:25> Cosign ED Attending Irenaature Attestation: I was immediately available in the department for consultation. Documentation has been reviewed. I agree with assessment and plan.
[2022-07-14 17:49] LABS: C-Reactive Protein Quant < 0.5 mg/dL (<1.0)
[2022-07-14 18:03] LABS: HCG Quantitative /Beta subunit < 2.4 mIU/mL; Procalcitonin < 0.03 ng/mL (<0.5)
--- NOTE | 2022-07-14 19:03 | PC.NURSE ---
Addendum entered by Gold Payne R.N. 07/14/22 19:03: Provider aware. Original Note: Pt declined pain meds again. Pt initially requested them, then repositioned and now pain is more manageable.
--- NOTE | 2022-07-14 19:13 | DI.CT.S_ITS ---
PROCEDURE: CT KIDNEY URETER BLADDER (KUB) INDICATIONS: nephrolithiasis, uterine, right pelvic abnormality? TECHNIQUE: Axial sections were acquired from the lung bases to the pubic symphysis. Coronal and sagittal reformats were performed. For radiation dose reduction, the following was used: automated exposure control, adjustment of mA and/or kV according to patient size. COMPARISON: [facility], , PELVIC COMPLETE, 07/14/2022, 18:16. FINDINGS: Image quality: Adequate Lung bases: No pleural effusion URINARY: No urinary stone visualized. Mild left pelviectasis without andres hydronephrosis. No right hydroureteronephrosis. Bladder: Normal wall thickness. No stones. ABDOMEN: Liver: Unremarkable. Gallbladder: Unremarkable. Biliary ducts: Unremarkable. Pancreas: Unremarkable. Spleen: Unremarkable. Adrenal Glands: Unremarkable. Stomach and Bowel: No bowel obstruction. No evidence of acute appendicitis identified. Peritoneum: No free air or substantial free fluid Abdominal Nodes: No enlarged retroperitoneal or mesenteric lymph nodes. Vessels: No abdominal aortic aneurysm PELVIS: Pelvic Organs: Better evaluated on pelvic ultrasound same day Pelvic Nodes: Unremarkable. Bones: Unremarkable. IMPRESSION: No acute abnormality identified within the abdomen or pelvis on this noncontrast exam. Dictated by: Sergio Villa M.D. on 07/14/2022 at 20:32 Approved by: Sergio Villa M.D. on 07/14/2022 at 20:42
[2022-07-14] MEDS: HYDROCODONE/ACET 5/325 TABLET 1 TAB PO (19:26)
[2022-07-14] MEDS: cephALEXin 250 MG CAPSULE 500 MG PO (20:36)
[2022-07-14] MEDS: PHENAZOPYRIDINE 100 MG TABLET 200 MG PO (20:36)
[2022-07-14] MEDS: POTASSIUM CHLORIDE 20 MEQ/15 ML UDC 40 MEQ PO (20:37)
--- NOTE | 2022-07-14 21:11 | PC.NURSE ---
Pt had questions about taking Keflex while nursing. This RN spoke to pharmacist Ar with [facility] who said very little enters the breast milk and OK to breast feed. Pt made aware.
== END 2022-07-14 21:16 | disposition home or self-care (01) ==
PROVIDERS: Emergency Medicine; Emergency Provider Nurse Practitioner Critical Care Medicine; Family Provider Internal Medicine; PCP Registered Nurse Diabetes Educator
DX: N30.01 Acute cystitis with hematuria (principal); K59.00 Constipation, unspecified; N83.209 Unspecified ovarian cyst, unspecified side
CPT/HCPCS: 36415; 74176; 76856; 80053; 81003; 81015; 81025; 83690; 84145; 84702; 85025; 86140; 87086; 87210; 96372; 96374; 99284; 99285; J1885; J2405